=== PATIENT | male | born 1960 | race Caucasian/White ===

== ENCOUNTER 2017-10-08 23:51 | Emergency (ER) | payer BC ==
[2017-10-09] MEDS ORDERED: Colchicine 0.6 MG TAB PO SCH (00:30)
[2017-10-09 00:51] LABS: Anion Gap 12 mmol/L (10-20); BUN (Urea Nitrogen) 15 mg/dL (8.4-25.7); Calc. Creatinine Clearance 0 mL/min (70-130); Calcium 9.3 mg/dL (7.8-10.44); Carbon Dioxide 26 mmol/L (22-29); Chloride 103 mmol/L (98-107); Estimated GFR-MDRD 49; Uric Acid 5.6 mg/dL (3.5-7.2)
== END 2017-10-09 01:32 | disposition home or self-care (01) ==
LOC: ERS 23:51
DX: M10.9 Gout, unspecified (principal); I10 Essential (primary) hypertension; E11.9 Type 2 diabetes mellitus without complications; Z79.899 Other long term (current) drug therapy
CPT/HCPCS: 36415; 80048; 84550; 99283